=== PATIENT | female | born 1960 | race Caucasian/White ===

== ENCOUNTER → 2022-03-27 13:22 | Outpatient (BNVA) | payer MEDICAID, SELFPAY | PROVIDERS: Family Provider Emergency Medicine; PCP Family Medicine; Visit Provider Otolaryngology | DX: R49.0 Dysphonia (principal); Z86.16 Personal history of COVID-19; J43.9 Emphysema, unspecified; F17.210 Nicotine dependence, cigarettes, uncomplicated | CPT/HCPCS: 31575; 99204 ==

== ENCOUNTER → 2022-11-20 13:15 | Outpatient (BNVA) | payer MEDICAID, SELFPAY | PROVIDERS: Family Provider Emergency Medicine; PCP Family Medicine; Visit Provider Nurse Practitioner Family | DX: Z80.8 Family history of malignant neoplasm of other organs or systems (principal); L02.221 Furuncle of abdominal wall; L30.4 Erythema intertrigo; Z85.828 Personal history of other malignant neoplasm of skin; L72.0 Epidermal cyst; L57.0 Actinic keratosis; D18.01 Hemangioma of skin and subcutaneous tissue; L82.1 Other seborrheic keratosis | CPT/HCPCS: 10060; 17000; 17003; 99204 ==